=== PATIENT | male | born 1945 | race African-American/Black ===

== ENCOUNTER 2017-02-17 20:48 | Emergency (ER) | payer OTHER ==
[~2017-02-17] VITALS: Ht 180.3 cm; Wt 64.0 kg
[~2017-02-17 20:48] MED LIST: ANTIINFLAMMATORY; DIAZ10 PO; GLYB1TAB51 PO; HYDR10TA16 PO
[2017-02-17 20:51] VITALS: BP 134/76; PULSE 88; RESP 16; TEMP 97.4; O2SAT 98
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
[2017-02-17] MEDS ORDERED: INDO25CA PO (22:44)
== END 2017-02-18 | disposition home or self-care (01) ==
LOC: NEPK 20:48
DX: M70.21 Olecranon bursitis, right elbow (principal); S39.012A Strain of muscle, fascia and tendon of lower back, initial encounter; V49.40XA Driver injured in collision with unspecified motor vehicles in traffic accident, initial encounter; Y92.488 Other paved roadways as the place of occurrence of the external cause
CPT/HCPCS: 72100; 73080; 99284